=== PATIENT | female | born 1965 ===

== ENCOUNTER 2022-01-26 10:42 | Outpatient (CLI) | payer OTHER ==
[2022-01-26] MEDS ORDERED: Iopamidol-370 76% 500 ML 1 ML ONE (11:28)
== END 2022-01-26 10:43 | disposition home or self-care (01) ==
LOC: RAD 10:42
PROVIDERS: ATTEND Nurse Practitioner Family
DX: N99.518 Other cystostomy complication (principal); N83.8 Other noninflammatory disorders of ovary, fallopian tube and broad ligament
CPT/HCPCS: 51600; 74430; Q9967